=== PATIENT | male | born 1980 | race Caucasian/White ===

== ENCOUNTER 2022-11-11 22:32 | Emergency (ER) | payer SELFPAY ==
[~2022-11-11] VITALS: Ht 188 cm; Wt 108.9 kg
[2022-11-11 22:44] VITALS: BP 112/75
--- NOTE | 2022-11-11 23:15 | NUR ---
Wesly paul in [facility] - 11/11/22 at 2315 by KAZ PT TAKEN TO RADIOLOGY
--- NOTE | 2022-11-11 23:15 | NUR ---
PT TAKEN TO RADIOLOGY
[2022-11-11] MEDS ORDERED: IBUP-1842 PO (23:35)
[2022-11-11 23:50] VITALS: BP 112/75
--- NOTE | 2022-11-11 23:50 | NUR ---
Patient discharged with v/s stable. Written and verbal after care instructions given and explained. New rx ibuprofen. Patient verbalized understanding. Ambulatory with steady gait. All questions addressed prior to discharge. Advised to follow up with PMD.
--- NOTE | 2022-11-11 23:50 | NUR ---
Seen and evaluated by AR
== END 2022-11-11 23:50 | disposition home or self-care (01) ==
LOC: MED 22:32
DX: M25.572 Pain in left ankle and joints of left foot (principal)
CPT/HCPCS: 73610; 99283